=== PATIENT | male | born 2000 | race Two or more races ===

== ENCOUNTER 2025-01-18 17:51 | Emergency (ER) | payer OTHER ==
[~2025-01-18] VITALS: Ht 170.2 cm; Wt 93.9 kg
[2025-01-18 18:02] VITALS: BP 115/64; TEMP 98.1
[2025-01-18] MEDS ORDERED: IBUPROFEN 400 MG TABLET ONE (18:39)
[2025-01-18] MEDS: IBUPROFEN 400 MG TABLET PO ONE (18:54)
[2025-01-18 19:15] VITALS: O2SAT 99
== END 2025-01-18 19:15 | disposition home or self-care (01) ==
LOC: ER 17:58
DX: S99.922A Unspecified injury of left foot, initial encounter (principal); W52.XXXA Crushed, pushed or stepped on by crowd or human stampede, initial encounter; Y93.66 Activity, soccer; Y92.89 Other specified places as the place of occurrence of the external cause; Y99.8 Other external cause status
CPT/HCPCS: 73630-TC